=== PATIENT | female | born 1950 | race Caucasian/White ===

== ENCOUNTER → 2016-12-15 | Outpatient (CLI) | payer MEDICARE, BC | LOC: MC.RAD 08:14 | DX: Z12.31 Encounter for screening mammogram for malignant neoplasm of breast (principal) ==

== ENCOUNTER → 2018-01-10 | Outpatient (CLI) | payer MEDICARE, BC | LOC: MC.RAD 08:16 | DX: Z12.31 Encounter for screening mammogram for malignant neoplasm of breast (principal) ==

== ENCOUNTER → 2019-05-01 | Outpatient (CLI) | payer MEDICARE, BC | LOC: MC.RAD 11:10 | DX: Z12.31 Encounter for screening mammogram for malignant neoplasm of breast (principal); Z98.890 Other specified postprocedural states; Z92.3 Personal history of irradiation ==

== ENCOUNTER → 2021-02-10 | Outpatient (CLI) | payer MEDICARE, BC | LOC: MC.RAD 07:42 | DX: Z12.31 Encounter for screening mammogram for malignant neoplasm of breast (principal); Z98.82 Breast implant status; Z98.890 Other specified postprocedural states ==

== ENCOUNTER → 2022-03-24 | Outpatient (CLI) | payer MEDICARE | LOC: MC.RAD 11:35 | DX: Z12.31 Encounter for screening mammogram for malignant neoplasm of breast (principal) ==

== ENCOUNTER → 2024-06-19 | Outpatient (CLI) | payer MEDICARE | LOC: MC.RAD 09:59 | DX: Z12.31 Encounter for screening mammogram for malignant neoplasm of breast (principal) ==